=== PATIENT | male | born 1995 | race African-American/Black ===

== ENCOUNTER 2017-07-18 11:45 | Emergency (ER) | payer SELFPAY ==
[2017-07-18 11:56] VITALS: BP 142/78; PULSE 92; TEMP 97; BMI 17.2
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
== END 2017-07-18 13:43 | disposition home or self-care (01) ==
LOC: JERFT 11:45
DX: S39.848A Other specified injuries of external genitals, initial encounter (principal); Y04.2XXA Assault by strike against or bumped into by another person, initial encounter; Y93.89 Activity, other specified; Y92.89 Other specified places as the place of occurrence of the external cause; Y99.8 Other external cause status
CPT/HCPCS: 76870-TC; 99281-25